=== PATIENT | male | born 2000 | race Caucasian/White ===

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

== ENCOUNTER 2021-03-04 07:04 | Outpatient (CLI) | payer BC ==
[2021-03-04 07:42] LABS: BASOPHILS % (AUTO) 0.8 % (0-1); EOSINOPHILS # (AUTO) 0.3 X10'3 (0-0.9); EOSINOPHILS % (AUTO) 5.4 % (0-6); HEMATOCRIT 45.7 % (42.0-52.0); HEMOGLOBIN 15.8 g/dl (14.0-17.9); LYMPHOCYTES # (AUTO) 1.5 X10'3 (1.1-4.8); LYMPHOCYTES % (AUTO) 26.9 % (21-51); MEAN CORPUSCULAR HEMOGLOBIN 30.1 PG (27.0-31.0); MEAN CORPUSCULAR HGB CONC 34.5 g/dL (33.0-36.5); MEAN CORPUSCULAR VOLUME 87.1 FL (78-98); MEAN PLATELET VOLUME 6.7 FL (7.4-10.4); MONOCYTES # (AUTO) 0.7 X10'3 (0-0.9); MONOCYTES % (AUTO) 12.7 % (2-12); NEUTROPHILS % (AUTO) 54.2 % (42-75); PLATELET COUNT 276 X10'3 (140-440); RED BLOOD COUNT 5.25 X10'6 (4.70-6.10); RED CELL DISTRIBUTION WIDTH 14.2 % (11.5-14.5); WHITE BLOOD COUNT 5.6 X10'3 (4.5-11.0)
[2021-03-04 07:44] LABS: CLARITY,URINE CLEAR (Clear); COLOR,URINE YELLOW (Yellow); GLUCOSE, URINE NEGATIVE (Neg); KETONES,URINE NEGATIVE (Neg); LEUKOCYTE ESTERASE ,URINE NEGATIVE (Neg); NITRITES, URINE NEGATIVE (Neg); OCCULT BLOOD,URINE NEGATIVE (Neg); PH,URINE 6.5 (4.8-8.0); PROTEIN,URINE NEGATIVE (Neg); UROBILINOGEN,URINE 0.2 E.U/dL (0.2-1.0)
[2021-03-04 07:47] LABS: UA COLLECTION TYPE VOIDED
[2021-03-04 07:52] LABS: ALANINE AMINOTRANSFERASE 66 U/L (12-78); ALBUMIN/GLOBULIN RATIO 1.1 (1.1-1.5); ALKALINE PHOSPHATASE 74 IU/L (20-180); ANION GAP 6 (8-16); ASPARTATE AMINO TRANSFERASE 33 U/L (10-37); BILIRUBIN,TOTAL 0.7 MG/DL (0.1-1.0); BLOOD UREA NITROGEN 17 MG/DL (7-18); BUN/CREATININE RATIO 19.1 (5.4-32.0); CALCIUM 9.3 MG/DL (8.5-10.1); CHLORIDE 106 MMOL/L (99-107); CREATININE 0.89 MG/DL (0.60-1.10); GLUCOSE 89 MG/DL (70-104); LIPASE 70 U/L (73-393); POTASSIUM 4.3 MMOL/L (3.5-5.1); SODIUM 144 MMOL/L (135-145); TOTAL CARBON DIOXIDE 31.6 MMOL/L (24-32); TOTAL PROTEIN 7.5 G/DL (6.4-8.2); eGFR > 90 ML/MIN
== END 2021-03-04 23:59 | disposition home or self-care (01) ==
LOC: RAD 07:04
DX: R10.13 Epigastric pain (principal); R10.9 Unspecified abdominal pain
CPT/HCPCS: 36415; 76700; 80053; 81003; 83690; 85025

== ENCOUNTER 2021-03-31 10:11 | Emergency (ER) | payer BC ==
[~2021-03-31] VITALS: Ht 193 cm; Wt 90.9 kg
[2021-03-31 10:13] VITALS: BP 142/76
[2021-03-31 17:02] LABS: BASOPHILS % (AUTO) 0.3 % (0-1); EOSINOPHILS # (AUTO) 0.2 X10'3 (0-0.9); EOSINOPHILS % (AUTO) 2.9 % (0-6); HEMOGLOBIN 16.1 g/dl (14.0-17.9); LYMPHOCYTES # (AUTO) 0.4 X10'3 (1.1-4.8); LYMPHOCYTES % (AUTO) 6.2 % (21-51); MEAN CORPUSCULAR HEMOGLOBIN 29.9 PG (27.0-31.0); MEAN CORPUSCULAR HGB CONC 34.2 g/dL (33.0-36.5); MEAN CORPUSCULAR VOLUME 87.2 FL (78-98); MEAN PLATELET VOLUME 6.9 FL (7.4-10.4); MONOCYTES # (AUTO) 0.6 X10'3 (0-0.9); MONOCYTES % (AUTO) 10.1 % (2-12); NEUTROPHILS # (AUTO) 5.1 X10'3 (1.8-7.7); NEUTROPHILS % (AUTO) 80.5 % (42-75); PLATELET COUNT 232 X10'3 (140-440); RED BLOOD COUNT 5.38 X10'6 (4.70-6.10); WHITE BLOOD COUNT 6.4 X10'3 (4.5-11.0)
[2021-03-31 17:09] LABS: ALBUMIN 4.3 G/DL (3.4-5.0); ANION GAP 7 (8-16); BLOOD UREA NITROGEN 15 MG/DL (7-18); BUN/CREATININE RATIO 17.4 (5.4-32.0); CALCIUM 9.2 MG/DL (8.5-10.1); CHLORIDE 102 MMOL/L (99-107); CREATININE 0.86 MG/DL (0.60-1.10); GLUCOSE 81 MG/DL (70-104); POTASSIUM 3.9 MMOL/L (3.5-5.1); SODIUM 139 MMOL/L (135-145); TOTAL CARBON DIOXIDE 29.6 MMOL/L (24-32); eGFR > 90 ML/MIN
[2021-03-31 17:13] LABS: D-DIMER 0.25 MG/L FEU (0-0.50)
== END 2021-03-31 18:42 | disposition home or self-care (01) ==
LOC: ER 10:11
DX: U07.1 COVID-19 (principal); R07.89 Other chest pain; Z87.891 Personal history of nicotine dependence
CPT/HCPCS: 71045; 80048; 85025; 85379; 87635; 93005; 99285; C9803

== ENCOUNTER 2021-06-20 02:37 | Emergency (ER) | payer BC ==
[~2021-06-20] VITALS: Ht 190.5 cm; Wt 97.7 kg
--- NOTE | 2021-06-20 04:15 | NUR ---
patient to CT
--- NOTE | 2021-06-20 04:37 | NUR ---
devan called report made report number #[id number]
[2021-06-20 06:08] VITALS: BP 121/77
== END 2021-06-20 06:10 | disposition home or self-care (01) ==
LOC: ER 02:37
DX: S01.91XA Laceration without foreign body of unspecified part of head, initial encounter (principal); W19.XXXA Unspecified fall, initial encounter; Y93.89 Activity, other specified; Y92.89 Other specified places as the place of occurrence of the external cause; Y99.8 Other external cause status
CPT/HCPCS: 70450; 70486; 99284

== ENCOUNTER 2021-12-03 16:34 | Emergency (ER) | payer BC ==
[~2021-12-03] VITALS: Ht 193 cm; Wt 90.9 kg
[2021-12-03] MEDS ORDERED: ringers solution, lactated 1000ml IV soln IV ONE ×2 (17:05→18:45)
[2021-12-03] MEDS ORDERED: ondansetron/PF 4mg/2ml inj IV ONE (17:05)
[2021-12-03] MEDS ORDERED: normal saline 1000ML IV soln IVB ONE (17:05)
[2021-12-03 17:42] LABS: ALANINE AMINOTRANSFERASE 57 U/L (12-78); ALBUMIN 5.4 G/DL (3.4-5.0); ALBUMIN/GLOBULIN RATIO 1.4 (1.1-1.5); ALKALINE PHOSPHATASE 92 IU/L (20-180); ANION GAP 16 (8-16); ASPARTATE AMINO TRANSFERASE 29 U/L (10-37); BILIRUBIN,TOTAL 1.5 MG/DL (0.1-1.0); BLOOD UREA NITROGEN 21 MG/DL (7-18); BUN/CREATININE RATIO 20.4 (5.4-32.0); CHLORIDE 96 MMOL/L (99-107); CREATININE 1.03 MG/DL (0.60-1.10); GLUCOSE 96 MG/DL (70-104); POTASSIUM 3.6 MMOL/L (3.5-5.1); SODIUM 135 MMOL/L (135-145); TOTAL PROTEIN 9.3 G/DL (6.4-8.2); eGFR > 90 ML/MIN
[2021-12-03] MEDS ORDERED: morphine 4 MG/ML inj SYRINge IV PRN (17:50)
[2021-12-03] MEDS ORDERED: proCHLORperazine 10 MG/2 ml inj IV ONE (17:50)
[2021-12-03 17:58] LABS: BASOPHILS # (AUTO) 0.1 X10'3 (0-0.2); BASOPHILS % (AUTO) 0.5 % (0-1); EOSINOPHILS # (AUTO) 0.2 X10'3 (0-0.9); EOSINOPHILS % (AUTO) 1.9 % (0-6); HEMATOCRIT 50.9 % (42.0-52.0); HEMOGLOBIN 17.9 g/dl (14.0-17.9); LYMPHOCYTES # (AUTO) 1.7 X10'3 (1.1-4.8); LYMPHOCYTES % (AUTO) 15.6 % (21-51); MEAN CORPUSCULAR HEMOGLOBIN 29.7 PG (27.0-31.0); MEAN CORPUSCULAR VOLUME 84.7 FL (78-98); MEAN PLATELET VOLUME 7.4 FL (7.4-10.4); MONOCYTES # (AUTO) 1.1 X10'3 (0-0.9); MONOCYTES % (AUTO) 10.7 % (2-12); NEUTROPHILS # (AUTO) 7.5 X10'3 (1.8-7.7); NEUTROPHILS % (AUTO) 71.3 % (42-75); PLATELET COUNT 320 X10'3 (140-440); RED BLOOD COUNT 6.02 X10'6 (4.70-6.10); RED CELL DISTRIBUTION WIDTH 13.7 % (11.5-14.5); WHITE BLOOD COUNT 10.6 X10'3 (4.5-11.0)
[2021-12-03 18:47] LABS: CREATINE KINASE 457 U/L (39-308)
[2021-12-03 21:15] LABS: CLARITY,URINE CLEAR (Clear); COLOR,URINE YELLOW (Yellow); GLUCOSE, URINE NEGATIVE (Neg); KETONES,URINE 40 mg/dl (Neg); LEUKOCYTE ESTERASE ,URINE NEGATIVE (Neg); NITRITES, URINE NEGATIVE (Neg); OCCULT BLOOD,URINE NEGATIVE (Neg); PROTEIN,URINE NEGATIVE (Neg); UROBILINOGEN,URINE 0.2 E.U/dL (0.2-1.0)
[2021-12-03 21:19] VITALS: BP 102/53
[2021-12-03 21:21] LABS: UA COLLECTION TYPE CLN CATCH MIDSTREAM
== END 2021-12-03 21:23 | disposition home or self-care (01) ==
LOC: ER 16:34
DX: T67.5XXA Heat exhaustion, unspecified, initial encounter (principal); X58.XXXA Exposure to other specified factors, initial encounter; Y93.89 Activity, other specified; Y92.89 Other specified places as the place of occurrence of the external cause; Y99.8 Other external cause status
CPT/HCPCS: 36415; 80053; 81003; 82550; 85025; 96361; 96374; 96375; 99285; J0780; J2270; J2405; J7030; J7120

== ENCOUNTER 2024-04-26 11:07 | Emergency (ER) | payer BC ==
[~2024-04-26] VITALS: Ht 193 cm; Wt 97.7 kg
[2024-04-26 11:39] VITALS: TEMP 98.5
[2024-04-26 13:10] LABS: BASOPHILS % (AUTO) 0.7 % (0-1); EOSINOPHILS # (AUTO) 0.2 X10'3 (0-0.9); EOSINOPHILS % (AUTO) 3.4 % (0-6); HEMATOCRIT 47.6 % (42.0-52.0); HEMOGLOBIN 16.3 g/dl (14.0-17.9); LYMPHOCYTES # (AUTO) 1.6 X10'3 (1.1-4.8); LYMPHOCYTES % (AUTO) 24.3 % (21-51); MEAN CORPUSCULAR HEMOGLOBIN 29.8 PG (27.0-31.0); MEAN CORPUSCULAR HGB CONC 34.3 g/dL (33.0-36.5); MEAN CORPUSCULAR VOLUME 86.8 FL (78-98); MEAN PLATELET VOLUME 7.2 FL (7.4-10.4); MONOCYTES # (AUTO) 0.8 X10'3 (0-0.9); MONOCYTES % (AUTO) 12.9 % (2-12); NEUTROPHILS # (AUTO) 3.8 X10'3 (1.8-7.7); NEUTROPHILS % (AUTO) 58.7 % (42-75); PLATELET COUNT 281 X10'3 (140-440); RED BLOOD COUNT 5.48 X10'6 (4.70-6.10); RED CELL DISTRIBUTION WIDTH 13.3 % (11.5-14.5); WHITE BLOOD COUNT 6.4 X10'3 (4.5-11.0)
[2024-04-26 13:29] LABS: ALBUMIN 4.5 G/DL (3.4-5.0); ALBUMIN/GLOBULIN RATIO 1.1 (1.1-1.5); ANION GAP 8 (8-16); ASPARTATE AMINO TRANSFERASE 25 U/L (10-37); BILIRUBIN,TOTAL 0.9 MG/DL (0.1-1.0); BLOOD UREA NITROGEN 20 MG/DL (7-18); BUN/CREATININE RATIO 22.2 (10.0-20.0); CALCIUM 9.6 MG/DL (8.5-10.1); CHLORIDE 101 MMOL/L (99-107); GLUCOSE 80 MG/DL (70-104); POTASSIUM 4.2 MMOL/L (3.5-5.1); SODIUM 137 MMOL/L (135-145); TOTAL CARBON DIOXIDE 27.8 MMOL/L (24-32); TOTAL PROTEIN 8.6 G/DL (6.4-8.2); eCRCL 158 ML/MIN; eGFR > 90 ML/MIN
[2024-04-26 13:30] LABS: ALANINE AMINOTRANSFERASE 37 U/L (12-78); ALKALINE PHOSPHATASE 63 IU/L (46-116)
[2024-04-26 13:39] LABS: PRO BRAIN NATRIURETIC PEPTIDE 61 PG/ML (0-125)
[2024-04-26 14:14] VITALS: BP 117/72; PULSE 72; RESP 16; O2SAT 98
== END 2024-04-26 14:15 | disposition home or self-care (01) ==
LOC: ER 11:08
DX: R07.9 Chest pain, unspecified (principal)
CPT/HCPCS: 36415; 71045; 80053; 83880; 84484; 85025; 93005; 99285